=== PATIENT | male | born 1980 | race African-American/Black ===

== ENCOUNTER 2021-08-24 11:28 | Emergency (ER) | payer OTHER, SELFPAY ==
[2021-08-24 11:55] VITALS: BP 137/66; PULSE 99; RESP 20; TEMP 36.1; O2SAT 98
--- NOTE | 2021-08-24 12:28 | ED.DENTAL ---
HPI - Dental/Oral General Chief complaint: Dental/Oral Stated complaint: toothache Time Seen by Provider: 08/24/21 12:22 Source: patient and RN notes reviewed Mode of arrival: ambulatory Limitations: no limitations History of Present Illness HPI Narrative: Patient presents today complaining of right upper dental pain x5 days. 2 weeks ago he got a new crown placed and subsequently was flossing around the crown and experienced some blood. Now states the pain to the tooth had resolved but he is currently experiencing some right ear pain and pain to his right eye socket that is worse at night. Currently rates his pain 4/10 and has been taking Tylenol, rinsing with salt water and using Orajel to the tooth. Patient has an appointment with his dentist on September 07. He was recently on penicillin right after his crown was placed. MD Complaint: tooth pain Related Data Allergies Allergy/AdvReac Type Severity Reaction Status Date / Time No Known Allergies Allergy Verified 08/24/21 12:02 Review of Systems Review of Systems: CONSTITUTIONAL: Denies body aches, fever, chills, or sweats. EYES: Denies visual changes, redness, or discharge. ENT: Denies rhinorrhea, congestion, sore throat.+ Tooth pain, right ear pain CARDIOVASCULAR: Denies chest pain, palpitations, or edema. RESPIRATORY: Denies cough or dyspnea. GASTROINTESTINAL: Denies abdominal pain, nausea, vomiting, or diarrhea. GENITOURINARY: Denies dysuria or hematuria. SKIN: Denies rash, itching, or wounds. MUSCULOSKELETAL: Denies back pain, joint pain, or myalgia. NEUROLOGIC: Denies headache, numbness, tingling, or weakness. PSYCH: Denies depression or anxiety. PMFSH Comments At time of signature, I have reviewed and agree with nursing past medical, surgical, social and family history unless otherwise noted. Please see nursing chart for further information. There is no relevant family history pertinent to the presenting complaint Exam Narrative: GENERAL: Well-appearing, well-nourished, and in no acute distress. HEAD: Normocephalic, atraumatic. EYES: EOMI. No redness or drainage. Conjunctivae normal. ENT: Mucous membranes pink and moist. Nares clear. No rhinorrhea. TMs normal bilaterally. Throat normal. Uvula midline. Patient localizes pain surrounding tooth 2 and 3, but these teeth are nontender to palpation. There is a metal crown on tooth #3. Gumlines are not swollen or erythematous. No obvious periapical abscess. NECK: Normal AROM. Supple. No lymphadenopathy. CHEST: No respiratory distress. EXTREMITIES: Normal range of motion. No edema. SKIN: Warm, dry, no rash. Capillary refill normal. Normal skin turgor. NEURO: No focal deficits. Alert and oriented x3. Gait steady. PSYCH: Normal affect. No signs of depression or anxiety. Course Vital Signs Vital signs: Vital Signs Temperature 96.9 F L 08/24/21 11:55 Pulse Rate 99 08/24/21 11:55 Respiratory Rate 20 08/24/21 11:55 Blood Pressure 137/66 08/24/21 11:55 Pulse Oximetry 98 08/24/21 11:55 Temperature 96.9 F L 08/24/21 11:55 Pulse Rate 99 08/24/21 11:55 Respiratory Rate 20 08/24/21 11:55 Blood Pressure 137/66 08/24/21 11:55 Pulse Oximetry 98 08/24/21 11:55 Reviewed. Pt has been instructed to follow up with his PCP regarding his elevated blood pressure today. MDM - Dental/Oral Differential Diagnosis Differential diagnosis: Likely gingival abscess, dental caries, toothache, dental abscess and fracture of tooth Critical Care Time Critical Care Time Critical Care Time: No Discharge Plan Discharge Clinical Impression: Toothache Patient Disposition: Home, Self-Care Condition: Stable Instructions: Antibiotic Form, Dental Abscess (ED) Additional Instructions: Please take the amoxicillin as prescribed until gone. Take Tylenol or ibuprofen at home for pain. Follow-up with your dentist as scheduled. Your blood pressure was elevated above 120/80 today [facility]
== END 2021-08-24 12:33 | disposition home or self-care (01) ==
PROVIDERS: Emergency Provider Nurse Practitioner
DX: K08.89 Other specified disorders of teeth and supporting structures (principal); K21.9 Gastro-esophageal reflux disease without esophagitis
CPT/HCPCS: 99203; G0463